=== PATIENT | male | born 1950 | race Caucasian/White ===

== ENCOUNTER 2017-03-26 10:53 | Inpatient (IN) ==
[2017-03-26] MEDS ORDERED: Acetaminophen 325 MG TABLET PO PRN (15:01)
[2017-03-26] MEDS ORDERED: *HR* Morphine 2 MG/ML SYRINGE IVP PRN (15:01)
[2017-03-26] MEDS ORDERED: Naloxone 0.4 MG/ML INJ IVP PRN (15:01)
[2017-03-26] MEDS ORDERED: Ondansetron 4 MG/2 ML VIAL IVP PRN (15:01)
[2017-03-26] MEDS ORDERED: *HR* Dextrose 50 % in Water (Syg) 50 ML SYRINGE IVP PRN (15:04)
[2017-03-26] MEDS ORDERED: D5% in Water 1,000 ML IVC PRN (15:04)
[2017-03-26] MEDS ORDERED: Nitroglycerin 0.4 MG TAB.SUBL SL PRN (15:04)
[2017-03-26] MEDS ORDERED: Dextrose Gel 15 GM PO PRN ×2 (15:04)
[2017-03-26] MEDS ORDERED: *HR* Heparin 5,000 UNIT/ML VIAL SQ SCH (16:00)
[2017-03-26 16:26] LABS: Basophils % 0.4 %; Eosinophils # 0.2 K/mcL (0.0-0.6); Eosinophils % 2.2 %; Hematocrit 39.9 % (37.5-50.1); Hemoglobin 13.2 g/dL (12.9-16.9); Immature Granulocytes % 0.8 % (0-4); Lymphocytes # 2.6 K/mcL (0.6-4.6); Lymphocytes % 28.9 %; Mean Corpuscular HGB Conc 33.1 g/dL (31.6-35.5); Mean Corpuscular Hemoglobin 30.8 pg (28.0-33.3); Mean Corpuscular Volume 93.2 fL (83.0-100.0); Mean Platelet Volume 11.3 fL (9.4-12.4); Monocytes # 0.8 K/mcL (0.0-1.3); Monocytes % 8.6 %; Neutrophils # 5.3 K/mcL (1.6-8.9); Platelet Count 156 K/mcL (140-400); Red Blood Count 4.28 M/mcL (4.19-5.50); Red Cell Distribution Width 13.1 % (11.5-14.5); Segmented Neutrophils % 59.1 %
[2017-03-26 16:31] LABS: Prothrombin Time 11.2 Seconds (9.4-12.1)
[2017-03-26 16:38] LABS: Alanine Aminotransferase 29 Units/L (0-55); Albumin/Globulin Ratio 0.8 (1.1-2.2); Alkaline Phosphatase 58 Units/L (38-126); Aspartate Amino Transferase 31 Units/L (5-34); BUN/Creatinine Ratio 16 (6-26); Bilirubin,Total 0.4 mg/dL (0.2-1.2); Blood Urea Nitrogen 14 mg/dL (8-26); Calcium 8.9 mg/dL (8.6-10.8); Carbon Dioxide 24 mEq/L (19-29); Chloride 103 mEq/L (98-109); Glucose 156 mg/dL (70-99); Magnesium 1.7 mg/dL (1.6-2.6); Osmolality,Calculated 284 (280-300); Sodium 135 mEq/L (136-145); eGFR For African Americans > 60 (> 60); eGFR For Non-African Americans > 60 (> 60)
--- NOTE | 2017-03-26 16:52 | Internal Med History&Physical ---
Date of Encounter: 03/26/17 Time of Encounter: 16:00 Assessment and Plan (1) Chest pain Current visit: No Status: Acute Acute on chronic chest pain - rule out ACS, probable unstable angina Continue aspirin, statin, Lovenox Troponin - 0.00, we will trend EKG - pending Chest x-ray - no acute process Cardiology consultation Labs in a.m. Qualifiers: Chest pain type: unspecified Qualified Code(s): R07.9 - Chest pain, unspecified (2) CAD (coronary artery disease) Current visit: No Status: Chronic Status post CABG and stents Continue aspirin and statin Qualifiers: Coronary Disease-Associated Artery/Lesion type: bypass graft [place] vs. transplanted heart: [place] heart Associated angina: with stable angina Qualified Code(s): I25.709 - Atherosclerosis of coronary artery bypass graft(s) , unspecified, with unspecified angina pectoris (3) HTN (hypertension) Current visit: No Status: Chronic Essential hypertension, controlled, continue home medications, monitor Qualifiers: Hypertension type: essential hypertension Qualified Code(s): I10 - Essential (primary) hypertension (4) HLD (hyperlipidemia) Current visit: No Status: Chronic Continue atorvastatin Qualifiers: Hyperlipidemia type: mixed hyperlipidemia Qualified Code(s): E78.2 - Mixed hyperlipidemia (5) Diabetes Current visit: No Status: Chronic Type 2 diabetes mellitus, insulin-dependent, hyperglycemia Insulin sliding scale, glucose checks, Lantus insulin Qualifiers: Diabetes mellitus type: type 2 Diabetes mellitus complication status: with unspecified complications Diabetes mellitus half-way insulin use: with half-way use Qualified Code(s): E11.8 - Type 2 diabetes mellitus with unspecified complications; Z79.4 - assessment analyst (current) use of insulin (6) COPD (chronic obstructive pulmonary disease) Current visit: No Status: Chronic Not in exacerbation, stable DuoNeb's when necessary Qualifiers: COPD type: emphysema Emphysema type: unspecified Qualified Code(s): J43.9 - Emphysema, unspecified (7) KEVEN (obstructive sleep apnea) Current visit: No Status: Chronic Continue CPAP (8) Morbid obesity with BMI of 40.0-44.9, adult Current visit: No Status: Chronic BMI greater than 40 Encourage weight loss, lifestyle changes (9) DVT prophylaxis Current visit: Yes Status: Acute Continue Lovenox subcutaneous Internal Medicine - H&P: HPI Chief complaint: Chest pain Admitted From: Intrahospital Transfer Plans for Post Hospital Care: Home History of present illness: Mr. Paul is a 66 year old male with past medical history of coronary artery disease, hypertension, hyperlipidemia, diabetes, COPD, obstructive sleep apnea, anxiety and GERD. He presents as a transfer from the [facility]. Patient presented to the ED at the [facility] with complaints of chest pain that started about 24 hours ago. Patient describes the pain as chest tightness and crushing kind of pain mainly on the left side of chest. He states he does have chronic chest pain but this episode was different and more severe. Pain was intermittent and lasting for a few minutes each time. He initially went to the ED at the [facility]. Initial evaluation revealed T inversions and there was concern for ACS. Hospitalist service was contacted about the patient by the physician at the [facility]. He has received aspirin and nitroglycerin and also Lovenox and then transferred. It Director at the [facility] has also evaluated the patient and recommended transfer in view of his extensive coronary artery disease history. The physician also mentioned that patient may require a left heart catheter sooner rather than later. At present patient states his chest pain has improved significantly. Rates it 3 out of 10. Does not radiate. He initially had associated shortness of breath , but this is now resolved. Denies palpitations denies cough denies headache or dizziness or abdominal pain or vomiting or diarrhea. No aggravating or alleviating factors. No other associated symptoms. On examination patient is awake and alert. He is sitting in chair comfortably. Not in any distress. Answers all questions appropriately. No family members at bedside. Patient is being admitted for chest pain to rule out ACS. EKG to be done and troponins will be trended. Cardiology consult pending. He may require a nuclear stress test. Continue all his home medications. Patient has been explained about his condition and plan of care. Understood and agreed. No unanswered questions. CODE STATUS full code. Past Med Surg Social Fam HX - Past Medical History Medical history: COPD, coronary artery disease, diabetes, GERD, hyperlipidemia, hypertension, myocardial infarction, other Psychiatric history: anxiety, depression - Past Surgical History Surgical History: angioplasty/stent, coronary bypass (CABG) - Social History Smoking Status: Former smoker Smokeless Tobacco Status: No Alcohol use: rarely Drug use: none - Family History Father Living Status: Still Living Internal Medicine - H&P: Meds Aspirin Enteric Coated [Aspirin EC] 81 mg PO DAILY 05/08/16 [History] Atorvastatin Calcium [Lipitor] 80 mg PO DAILY 05/08/16 [History] Gabapentin [Neurontin] 900 mg PO QID 05/08/16 [History] Insulin ASPART [Novolog Flexpen] 16 unit SQ TIDWM 05/08/16 [History] Insulin Glargine [Lantus] 50 unit SQ BID 05/08/16 [History] Lisinopril [Zestril] 40 mg PO DAILY 05/08/16 [History] Mineral Oil/Petrolatum,White [Artificial Tears Eye Ointment] 1 appl BOTH EYES HS 05/08/16 [History] Nitroglycerin [Nitrostat] 0.4 mg SL Q5M PRN 05/08/16 [History] [place]-3/Dha/Epa/Fish Oil [Fish Oil 1,000 mg Softgel] 2 each PO BID 05/08/16 [ History] Omeprazole [PriLOSEC] 20 mg PO DAILY 05/08/16 [History] Amlodipine Besylate 2.5 mg PO DAILY 03/26/17 [History] Carboxymethylcellulose Sodium [Refresh Liquigel] 1 drop OP QID 03/26/17 [History ] Chlorhexidine Gluconate [Peridex] 15 ml MM DAILY 03/26/17 [History] DULoxetine [Cymbalta] 30 mg PO DAILY 03/26/17 [History] Enoxaparin [Lovenox] 135 mg SQ Q12H 03/26/17 [History] Insulin ASPART [NovoLOG] 2 - 6 unit SQ PRN PRN 03/26/17 [History] Isosorbide MONOnitrate (24 HR) [Imdur] 90 mg PO DAILY 03/26/17 [History] Metoprolol XL (24 HR) Succ [Toprol XL] 75 mg PO DAILY 03/26/17 [History] Oxybutynin [Ditropan] 5 mg PO DAILY 03/26/17 [History] Allergies No Known Allergies Allergy (Verified 05/08/16 13:53) All Systems PM: A 10-system review of systems was performed and is negative for pertinent findings except as documented above in the HPI. - Constitutional Constitutional: fatigue, weakness, no fever(s) - EENT Eyes: no blurry vision - Cardiovascular Cardiovascular ROS IM: chest pain, dyspnea, orthopnea, no dyspnea on exertion, no syncope - Respiratory Respiratory: dyspnea, no cough, no wheezing, no chest congestion - Gastrointestinal Gastrointestinal: no abdominal pain, no cramping, no diarrhea, no nausea, no vomiting - Genitourinary Genitourinary ROS male: no dysuria - Neurological Neurological ROS: no abnormal gait, no abnormal speech, no dizziness, no numbness, no tingling, no weakness - Constitutional Vitals: Temp Pulse Resp BP Pulse Ox 97.8 F 80 18 122/73 96 03/26/17 15:39 03/26/17 15:39 03/26/17 15:39 03/26/17 15:39 03/26/17 15:39 General appearance: Present: A&O X 3, morbidly obese, pleasant, no acute distress, answers questions appropriately - Head Head exam: Present: atraumatic - ENT ENT exam: Present: mucous membranes moist - Neck Neck exam general surgery: Present: supple - Respiratory Respiratory exam: Present: CTAB. Absent: rales, rhonchi, wheezes, tachypnea - Cardiovascular Cardiovascular exam: Present: RRR, +S1, +S2, systolic murmur - GI/Abdominal GI/Abdominal exam: Present: distended (Obese), soft, no peritoneal signs. Absent: firm, guarding, rigid, tenderness - Extremities Exam Extremities exam: Present: pedal edema (Bilateral leg edema 2+ pitting), radial pulses palpable and symetrical. Absent: cyanotic, tenderness - Neurological Exam Neurological exam: Present: alert, oriented X3, no focal deficits Internal Med - H&P Results - Labs CBC & Chem 7: 03/26/17 15:52 03/26/17 15:52 Labs: Short CBC 03/26/17 Range/Units 15:52 WBC 9.0 (4.3-11.1) K/mcL Hgb 13.2 (12.9-16.9) g/dL Hct 39.9 (37.5-50.1) % Plt Count 156 (140-400) K/mcL Neutrophils # 5.3 (1.6-8.9) K/mcL BMP 03/26/17 15:52 Sodium 135 L Potassium 4.0 Chloride 103 Carbon Dioxide 24 BUN 14 Creatinine 0.85 Glucose 156 H Calcium 8.9 Liver Function 03/26/17 Range/Units 15:52 Total Bilirubin 0.4 (0.2-1.2) mg/dL AST 31 (5-34) Units/L ALT 29 (0-55) Units/L Alkaline Phosphatase 58 (38-126) Units/L Albumin 3.0 L (3.5-5.0) g/dL - Impressions ITS Impressions Chest X-Ray 03/26/17 15:07 IMPRESSION: No active cardiopulmonary disease D/ / Raman Rosas MD / Raman Rosas MD Interpreting Provider: Raman Rosas MD
[2017-03-26] MEDS: Insulin LISPRO 300 UNITS/3 ML VIAL SQ SCH ×2 (17:15→21:03)
[2017-03-26] MEDS: Famotidine 20 MG/2 ML VIAL IVP SCH (17:15)
[2017-03-26] MEDS: Artificial Tears SOLN 15 ML BOTTLE BOTH EYES SCH ×2 (17:16→21:00)
[2017-03-26 17:21] LABS: Hemoglobin A1C 9.2 %
[2017-03-26] MEDS ORDERED: Insulin LISPRO 300 UNITS/3 ML VIAL SQ SCH (18:00)
[2017-03-26] MEDS ORDERED: Insulin DETEMIR 100 UNIT/ML X5UNITS SQ SCH (21:00)
[2017-03-26] MEDS ORDERED: Lacri-Lube 3.5 GM TUBE BOTH EYES SCH (21:00)
[2017-03-26] MEDS ORDERED: NON-FORMULARY MEDICATION 1 EACH EACH (Insulin Glargine [Lantus] 50 UNIT) SQ SCH (21:00)
[2017-03-26] MEDS: *HR* Enoxaparin 150 MG/ML SYRINGE SQ SCH (21:01)
[2017-03-26] MEDS: (Omega-3/Dha/Epa/Fish Oil [Fish Oil 1,000 Mg Softgel) PO SCH (21:03)
[2017-03-27 03:49] LABS: BUN/Creatinine Ratio 20 (6-26); Blood Urea Nitrogen 18 mg/dL (8-26); Calcium 8.8 mg/dL (8.6-10.8); Carbon Dioxide 26 mEq/L (19-29); Chloride 105 mEq/L (98-109); Chol/HDL Ratio 6.5 (0-4.9); Cholesterol 229 mg/dL (< 200); Glucose 111 mg/dL (70-99); HDL Cholesterol 35 mg/dL (40-59); LDL Cholesterol,Calculated 148 mg/dL (0-99); Osmolality,Calculated 287 (280-300); Potassium 4.2 mEq/L (3.5-4.5); Sodium 137 mEq/L (136-145); Triglycerides 231 mg/dL (< 150); eGFR For African Americans > 60 (> 60); eGFR For Non-African Americans > 60 (> 60)
[2017-03-27] MEDS: Famotidine 20 MG/2 ML VIAL IVP SCH (05:29)
[2017-03-27 06:21] VITALS: BP 132/82
[2017-03-27 06:47] LABS: Bilirubin,Urine Negative (Negative); Blood,Urine Negative (Negative); Clarity,Urine Clear (Clear); Color,Urine Yellow (Yellow); Glucose,Urine (UA) Normal (Normal); Ketones,Urine Negative (Negative); Leukocyte Esterase,Urine Negative (Negative); Nitrite,Urine Negative (Negative); Protein,Urine Negative (Neg-Trace); Specific Gravity,Urine 1.024 (1.010-1.025); Urobilinogen,Urine Normal (Normal)
[2017-03-27] MEDS: Insulin LISPRO 300 UNITS/3 ML VIAL SQ SCH (08:14)
--- NOTE | 2017-03-27 08:57 | Cardiology Consult Note ---
<Jenna Mosquera Steven - Last Filed: 03/27/17 09:08> Date of Encounter: 03/27/17 Time of Encounter: 06:45 Assessment and Plan (1) Chest pain Current Visit: Yes Status: Acute Patient presents with typical/atypical chest pain symptoms--pain different from prior ID. Troponin negative at [facility] and also negative x2 here. No ischemic ECG changes, pain free upon exam. He has known severe small vessel not amendable to PCI as demonstrated on [facility] April 2016. EF 40%. Recommend medical management--will increase imdur to 120 mg daily and start Ranexa 500 mg BID. Continue home CV medications including asa, statin, betablocker, CCB, and ACEi. Appears euvolemic upon exam, weights stable. Risk factor modification emphasized including improved glycemic control, daily exercise, and weight loss. Follows with [facility]--recommend follow-up in 1-2 weeks after discharge to assess symptoms after medication adjustments. Anticipate sign-off once seen by Dr. Banuelos. Qualifiers: Chest pain type: chest pain due to myocardial ischemia Ischemic chest pain type: stable angina pectoris Qualified Code(s): I20.8 - Other forms of angina pectoris (2) CAD (coronary artery disease) Current Visit: Yes Status: Chronic Hx of CABG. Plan as above. Asa, statin, betablocker, nitrates, CCB, and ranexa Qualifiers: Coronary Disease-Associated Artery/Lesion type: bypass graft [place] vs. transplanted heart: [place] heart Associated angina: with stable angina Qualified Code(s): I25.709 - Atherosclerosis of coronary artery bypass graft(s) , unspecified, with unspecified angina pectoris Discussion w patient/family: The assessment and plan as outlined above was discussed with the patient and/or family members who expressed understanding and agreement. All questions were answered. Thank you for involving us in the care of your patient. Please call with any questions. The patient will be discussed and reviewed with Dr. Banuelos; changes to be made accordingly. History of Present Illness Consult date: 03/26/17 Requesting physician: Jhonatan Bone Consult reason: Chest pain Chief complaint: Chest pain History of present illness: Mr. Paul is a 66 year old male with PMHx significant for CAD s/p CABG, DMII, HTN, HLD, chronic lung disease, and KEVEN who presented to [facility] from [facility] due to chest pain. Pain is described as left sided pressure/heaviness with radiation to neck. Reports pain initially started 2 weeks ago and describes as intermittent, occurs with rest and exertion. Typically resolves after several minutes without intervention. Pain is different from prior ID. Troponin at the [facility] was negative. No acute ischemic ECG changes noted. Prior CV testing: [facility] 05/11/16: s/p CABG 3 of 4 patent bypass grafts, mild LV dysfunction EF 40% , severe small vessel CAD TTE 05/09/16: very poor echocardiographic windows due to body habitus Past Med Surg Social Fam HX - Past Medical History Attestation: Yes The following information was validated with the patient. Source: patient Medical history: CHF (chronic, systolic), COPD, coronary artery disease, diabetes, GERD, hyperlipidemia, hypertension, myocardial infarction, other (KEVEN) Psychiatric history: anxiety, depression - Past Surgical History Surgical History: angioplasty/stent, coronary bypass (CABG) - Social History Smoking Status: Former smoker Smokeless Tobacco Status: No Alcohol use: rarely Drug use: none - Family History Father Living Status: Still Living Medications and Allergies Aspirin Enteric Coated [Aspirin EC] 81 mg PO DAILY 05/08/16 [History] Atorvastatin Calcium [Lipitor] 80 mg PO DAILY 05/08/16 [History] Gabapentin [Neurontin] 900 mg PO QID 05/08/16 [History] Insulin ASPART [Novolog Flexpen] 16 unit SQ TIDWM 05/08/16 [History] Insulin Glargine [Lantus] 50 unit SQ BID 05/08/16 [History] Lisinopril [Zestril] 40 mg PO DAILY 05/08/16 [History] Mineral Oil/Petrolatum,White [Artificial Tears Eye Ointment] 1 appl BOTH EYES HS 05/08/16 [History] Nitroglycerin [Nitrostat] 0.4 mg SL Q5M PRN 05/08/16 [History] [place]-3/Dha/Epa/Fish Oil [Fish Oil 1,000 mg Softgel] 2 each PO BID 05/08/16 [ History] Omeprazole [PriLOSEC] 20 mg PO DAILY 05/08/16 [History] Amlodipine Besylate 2.5 mg PO DAILY 03/26/17 [History] Carboxymethylcellulose Sodium [Refresh Liquigel] 1 drop OP QID 03/26/17 [History ] Chlorhexidine Gluconate [Peridex] 15 ml MM DAILY 03/26/17 [History] DULoxetine [Cymbalta] 30 mg PO DAILY 03/26/17 [History] Insulin ASPART [NovoLOG] 2 - 6 unit SQ PRN PRN 03/26/17 [History] Isosorbide MONOnitrate (24 HR) [Imdur] 90 mg PO DAILY 03/26/17 [History] Metoprolol XL (24 HR) Succ [Toprol Xl] 75 mg PO DAILY 03/26/17 [History] Oxybutynin [Ditropan] 5 mg PO DAILY 03/26/17 [History] Isosorbide MONOnitrate (24 HR) [Imdur] 120 mg PO DAILY #60 tab.er.24h 03/27/17 [ Rx] Ranolazine [Ranexa] 500 mg PO BID #60 tab.er.12h 03/27/17 [Rx] Allergies No Known Allergies Allergy (Verified 05/08/16 13:53) All Systems Review: A 10-system review of systems was performed and is negative for pertinent findings except as documented above in the HPI. - Cardiovascular Cardiovascular: as per HPI Physical Examination Vital Signs, Last 4 Hours Temp Pulse Resp BP Pulse Ox 03/27/17 06:20 97.5 F L 67 15 132/82 94 General: Conversant, Other (morbidly obese) HEENT: Atraumatic, Normocephaly Cardiac: Reg Rate and Rhythm, Normal S1 and S2 Lungs: Normal Breath Sounds Neuro: Alert and responsive Abdomen: Other (large, obese abdomen) Extremities: Other (large extremities, non-pitting edema) Results 03/26/17 15:52 03/27/17 03:25 Lab Results 03/26/17 03/26/17 03/26/17 15:52 15:52 15:52 WBC 9.0 Hgb 13.2 Hct 39.9 Plt Count 156 INR 1.0 Sodium 135 L Potassium 4.0 Chloride 103 Carbon Dioxide 24 BUN 14 Creatinine 0.85 Glucose 156 H Calcium 8.9 Magnesium 1.7 Total Bilirubin 0.4 AST 31 ALT 29 Alkaline Phosphatase 58 Troponin I B-Natriuretic Peptide 03/26/17 03/26/17 03/26/17 15:52 15:52 21:36 WBC Hgb Hct Plt Count INR Sodium Potassium Chloride Carbon Dioxide BUN Creatinine Glucose Calcium Magnesium Total Bilirubin AST ALT Alkaline Phosphatase Troponin I 0.00 0.00 B-Natriuretic Peptide 11 03/27/17 03/27/17 03:25 03:25 WBC Hgb Hct Plt Count INR Sodium 137 Potassium 4.2 Chloride 105 Carbon Dioxide 26 BUN 18 Creatinine 0.90 Glucose 111 H Calcium 8.8 Magnesium Total Bilirubin AST ALT Alkaline Phosphatase Troponin I 0.01 B-Natriuretic Peptide Active Medications Acetaminophen (Tylenol) 650 mg PO Q6HR PRN PRN Reason: Mild Pain (1-3) Stop: 09/25/17 15:02 Amlodipine Besylate (Norvasc) 5 mg PO DAILY SHARDA PRN Reason: Protocol Stop: 09/26/17 09:01 Last Admin: 03/27/17 09:01 Dose: 5 mg Artificial Tears (Lacri-Lube) 1 appl BOTH EYES HS SHARDA PRN Reason: Protocol Stop: 09/25/17 21:01 Last Admin: 03/26/17 21:01 Dose: 1 appl Artificial Tears ([place] Tears) 1 drop BOTH EYES QID [facility] Stop: 09/25/17 17:01 Last Admin: 03/27/17 09:02 Dose: 1 drop Aspirin (Aspirin Ec) 81 mg PO DAILY [facility] Stop: 09/26/17 09:01 Last Admin: 03/27/17 09:01 Dose: 81 mg Atorvastatin Calcium (Lipitor) 80 mg PO DAILY [facility] Stop: 09/25/17 15:16 Last Admin: 03/27/17 09:01 Dose: 80 mg Calcium Carbonate (Tums) 500 mg PO BID [facility] Stop: 09/25/17 21:01 Last Admin: 03/27/17 09:01 Dose: 500 mg Carvedilol (Coreg) 25 mg PO BID [facility] PRN Reason: Protocol Stop: 09/25/17 21:01 Last Admin: 03/27/17 09:02 Dose: 25 mg Dextrose/Water (Dextrose 50% (Syg)) 25 ml IVP AD PRN PRN Reason: Hypoglycemia Stop: 09/25/17 15:05 Enoxaparin Sodium (Lovenox) 140 mg SQ Q12H [facility] Stop: 09/25/17 21:01 Last Admin: 03/27/17 09:02 Dose: 140 mg Famotidine (Pepcid) 20 mg IVP Q12HR [facility] Stop: 09/25/17 18:01 Last Admin: 03/27/17 05:29 Dose: 20 mg Fenofibrate (Tricor) 162 mg PO DAILY SHARDA PRN Reason: Protocol Stop: 09/26/17 09:01 Last Admin: 03/27/17 09:01 Dose: 162 mg Furosemide (Lasix) 20 mg PO DAILY [facility] Stop: 09/26/17 09:01 Last Admin: 03/27/17 09:01 Dose: 20 mg Insulin Detemir (Levemir) 50 unit SQ BID [facility] Stop: 09/25/17 21:01 Last Admin: 03/26/17 21:00 Dose: 50 unit Insulin Human Lispro (Humalog) 0 units SQ ACHS SHARDA PRN Reason: Protocol Stop: 09/25/17 17:01 Last Admin: 03/27/17 08:14 Dose: Not Given Isosorbide Mononitrate (Imdur) 120 mg PO DAILY [facility] Stop: 09/26/17 09:01 Last Admin: 03/27/17 09:01 Dose: 120 mg Lisinopril (Zestril) 40 mg PO DAILY [facility] Stop: 09/26/17 09:01 Last Admin: 03/27/17 09:02 Dose: 40 mg Morphine Sulfate (Morphine Sulfate) 2 mg IVP Q4HR PRN PRN Reason: Severe Pain (7-10) Stop: 09/25/17 15:02 Naloxone HCl (Narcan) 0.4 mg IVP Q2MIN PRN PRN Reason: Opioid Reversal Stop: 09/25/17 15:02 Nitroglycerin (Nitroglycerin) 0.4 mg SL AD PRN PRN Reason: Chest Pain Stop: 09/25/17 15:05 Ondansetron HCl (Zofran) 4 mg IVP Q8HR PRN PRN Reason: Nausea And Vomiting Stop: 09/25/17 15:02 Pharmacy Profile Note (Patient Taking Own Medication) 0 each PO BID [facility] Stop: 09/25/17 21:01 Last Admin: 03/27/17 09:02 Dose: Not Given Ranolazine (Ranexa) 500 mg PO BID [facility] Stop: 09/26/17 09:01 Last Admin: 03/27/17 09:02 Dose: 500 mg Vitamin D (Vitamin D) 1,000 unit PO QD [facility] Stop: 09/26/17 09:01 Last Admin: 03/27/17 09:01 Dose: 1,000 unit - Imaging and Cardiology Stress Test: report reviewed Echo: report reviewed Cardiac cath: report reviewed Other Results: 12 hour tele: avg HR=68 SR. No significant pause or event noted. - EKG Interpretation EKG results cardiology: personally reviewed Consult Discharge Plan - Plan Instructions: Isosorbide Mononitrate (By mouth), Ranolazine (By mouth), Chest Pain (DC), Diabetes Mellitus Type 2 in Adults (DC), Chronic Obstructive Pulmonary Disease (DC), Chronic Hypertension (DC) Additional Instructions: Follow up with Cardiology at [facility] in 1-2 weeks [facility] [Primary Care Provider[facility] - (in 1-2 weeks) Prescriptions: Isosorbide MONOnitrate (24 HR) [Imdur] 120 mg PO DAILY #60 tab.er.24h Ranolazine [Ranexa] 500 mg PO BID #60 tab.er.12h <Whitney Banuelos - Last Filed: 03/27/17 11:27> Date of Encounter: 03/27/17 Assessment and Plan Discussion w patient/family: The assessment and plan as outlined above was discussed with the patient and/or family members who expressed understanding and agreement. All questions were answered. Thank you for involving us in the care of your patient. Please call with any questions. History of Present Illness History of present illness: Mr. Paul is a 66 year old male All Systems Review: A 10-system review of systems was performed and is negative for pertinent findings except as documented above in the HPI. Results 03/26/17 15:52 03/27/17 03:25 Lab Results 03/26/17 03/26/17 03/26/17 15:52 15:52 15:52 WBC 9.0 Hgb 13.2 Hct 39.9 Plt Count 156 INR 1.0 Sodium 135 L Potassium 4.0 Chloride 103 Carbon Dioxide 24 BUN 14 Creatinine 0.85 Glucose 156 H Calcium 8.9 Magnesium 1.7 Total Bilirubin 0.4 AST 31 ALT 29 Alkaline Phosphatase 58 Troponin I B-Natriuretic Peptide 03/26/17 03/26/17 03/26/17 15:52 15:52 21:36 WBC Hgb Hct Plt Count INR Sodium Potassium Chloride Carbon Dioxide BUN Creatinine Glucose Calcium Magnesium Total Bilirubin AST ALT Alkaline Phosphatase Troponin I 0.00 0.00 B-Natriuretic Peptide 11 03/27/17 03/27/17 03:25 03:25 WBC Hgb Hct Plt Count INR Sodium 137 Potassium 4.2 Chloride 105 Carbon Dioxide 26 BUN 18 Creatinine 0.90 Glucose 111 H Calcium 8.8 Magnesium Total Bilirubin AST ALT Alkaline Phosphatase Troponin I 0.01 B-Natriuretic Peptide - Attending Attestation I examined this patient and my medical decision-making was reviewed with the DINKEY ENGINE OPERATOR/PA/Advanced Practice Nurse/Resident Physician. I agree with the documented findings, disposition and treatment plan. Mr. Paul presents with atypical chest pain with known CAD and ischemic cardiomyopathy EF 40%. He last underwent cath April 2016 demonstrating small vessel disease not amenable to PCI. We recommend medical management. Troponins negative. No concering ECG findings. Now chest pain free. Will add ranexa and increase imdur. Continue asa, statin, BB, ACEI. He is euvolemic on exam. Lungs clear on CXR. BNP normal. We will sign off. Recommend outpatient cardiology follow up. Please call with questions.
[2017-03-27] MEDS ORDERED: amLODIPine 5 MG TABLET PO SCH (09:00)
[2017-03-27] MEDS ORDERED: Cholecalciferol (D-3) 1,000 UNIT TABLET PO SCH (09:00)
[2017-03-27] MEDS ORDERED: Lisinopril 20 MG TABLET PO SCH (09:00)
[2017-03-27] MEDS ORDERED: Fenofibrate 54 MG TABLET PO SCH (09:00)
[2017-03-27] MEDS ORDERED: Ranolazine 500 MG TAB.ER.12H PO SCH (09:00)
[2017-03-27] MEDS ORDERED: Furosemide 20 MG TABLET PO SCH (09:00)
[2017-03-27] MEDS ORDERED: Isosorbide MONOnitrate (24 HR) 60 MG TAB.ER.24H PO SCH (09:00)
[2017-03-27] MEDS ORDERED: Isosorbide MONOnitrate (24 HR) 30 MG TAB.ER.24H PO SCH (09:00)
[2017-03-27] MEDS ORDERED: Aspirin Enteric Coated 81 MG Tablet PO SCH (09:00)
[2017-03-27] MEDS: Artificial Tears SOLN 15 ML BOTTLE BOTH EYES SCH (09:02)
[2017-03-27] MEDS: *HR* Enoxaparin 150 MG/ML SYRINGE SQ SCH (09:02)
[2017-03-27] MEDS: (Omega-3/Dha/Epa/Fish Oil [Fish Oil 1,000 Mg Softgel) PO SCH (09:02)
--- NOTE | 2017-03-27 09:50 | Discharge Summary ---
Date of Encounter: 03/27/17 Time of Encounter: 09:15 - Discharge Diagnosis (1) Chest pain Priority: Primary Status: Acute Qualifiers: Chest pain type: chest pain due to myocardial ischemia Ischemic chest pain type: stable angina pectoris Qualified Code(s): I20.8 - Other forms of angina pectoris (2) CAD (coronary artery disease) Priority: Secondary Status: Chronic Qualifiers: Coronary Disease-Associated Artery/Lesion type: bypass graft [place] vs. 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 Qualified Code(s): E11.8 - Type 2 diabetes mellitus with unspecified complications; Z79.4 - regional intermodal truck driver (current) use of insulin (5) HLD (hyperlipidemia) Priority: Secondary Status: Chronic Qualifiers: Hyperlipidemia type: mixed hyperlipidemia Qualified Code(s): E78.2 - Mixed hyperlipidemia (6) HTN (hypertension) Priority: Secondary Status: Chronic Qualifiers: Hypertension type: essential hypertension Qualified Code(s): I10 - Essential (primary) hypertension (7) Morbid obesity with BMI of 40.0-44.9, adult Priority: Secondary Status: Chronic (8) KEVEN (obstructive sleep apnea) Priority: Secondary Status: Chronic - Discharge Medications Prescriptions: Isosorbide MONOnitrate (24 HR) [Imdur] 120 mg PO DAILY #60 tab.er.24h Ranolazine [Ranexa] 500 mg PO BID #60 tab.er.12h Home Medications: Aspirin Enteric Coated [Aspirin EC] 81 mg PO DAILY 05/08/16 [History] Atorvastatin Calcium [Lipitor] 80 mg PO DAILY 05/08/16 [History] Gabapentin [Neurontin] 900 mg PO QID 05/08/16 [History] Insulin ASPART [Novolog Flexpen] 16 unit SQ TIDWM 05/08/16 [History] Insulin Glargine [Lantus] 50 unit SQ BID 05/08/16 [History] Lisinopril [Zestril] 40 mg PO DAILY 05/08/16 [History] Mineral Oil/Petrolatum,White [Artificial Tears Eye Ointment] 1 appl BOTH EYES HS 05/08/16 [History] Nitroglycerin [Nitrostat] 0.4 mg SL Q5M PRN 05/08/16 [History] [place]-3/Dha/Epa/Fish Oil [Fish Oil 1,000 mg Softgel] 2 each PO BID 05/08/16 [ History] Omeprazole [PriLOSEC] 20 mg PO DAILY 05/08/16 [History] Amlodipine Besylate 2.5 mg PO DAILY 03/26/17 [History] Carboxymethylcellulose Sodium [Refresh Liquigel] 1 drop OP QID 03/26/17 [History ] Chlorhexidine Gluconate [Peridex] 15 ml MM DAILY 03/26/17 [History] DULoxetine [Cymbalta] 30 mg PO DAILY 03/26/17 [History] Insulin ASPART [NovoLOG] 2 - 6 unit SQ PRN PRN 03/26/17 [History] Isosorbide MONOnitrate (24 HR) [Imdur] 90 mg PO DAILY 03/26/17 [History] Metoprolol XL (24 HR) Succ [Toprol Xl] 75 mg PO DAILY 03/26/17 [History] Oxybutynin [Ditropan] 5 mg PO DAILY 03/26/17 [History] Isosorbide MONOnitrate (24 HR) [Imdur] 120 mg PO DAILY #60 tab.er.24h 03/27/17 [ Rx] Ranolazine [Ranexa] 500 mg PO BID #60 tab.er.12h 03/27/17 [Rx] Allergies/Adverse Reactions: Allergies No Known Allergies Allergy (Verified 05/08/16 13:53) Procedures/tests Complete & Pending: Procedures Performed prior 72 hours Category Date Time Status ECG 12 lead ECG [ECG] Stat Y 03/26/17 15:01 Ordered EKG [ECG 12 lead ECG] [ECG] AM 0600 Y 03/27/17 06:00 Ordered Date of admission: 03/26/17 15:50 [facility] care physician: [facility] Consults: 03/26/17 15:06 Consult to Cardiology [CONS] Routine Comment: Consulting Provider: Sravani Du Reason for Consult: Unstable angina, coronary artery disease Call Completed: No Discharging clinician: Anabel Epperson Anticipated date of discharge: 03/27/17 - Patient Status Disposition: Home, Self-Care Condition: Good Functional capacity at discharge: independent ambulation Overall status at discharge: patient is progressing back to baseline - Discharge Instructions Instructions: Isosorbide Mononitrate (By mouth), Ranolazine (By mouth), Chest Pain (DC), Diabetes Mellitus Type 2 in Adults (DC), Chronic Obstructive Pulmonary Disease (DC), Chronic Hypertension (DC) Follow Up With: [facility] [Primary Care Provider] - (in 1-2 weeks) Additional Instructions: Follow up with Cardiology at [facility] in 1-2 weeks - Diet and Activity Activity: increase activity as tolerated Diet: diabetic diet, low fat, low cholesterol, low salt diet Hospital course: Mr. Paul is a 66 year old male patient with a history of coronary artery disease status post coronary artery bypass grafting with severe small vessel coronary artery disease not amenable to PCI presented to the ER with complaints of chest pain. He had left-sided chest pain with heaviness and radiation to the neck. He apparently had run out of nitroglycerin at home and his pain improved after he was given nitroglycerin in the ER. He denies any shortness of breath or palpitations. His troponins were trended and they were negative so far. Cardiology was consulted. Given that patient appears to be having chronic stable angina, they recommend increasing the patient's Imdur and standing and accepted to the patient's treatment regimen in addition to his aspirin, statin and beta nancy. Recommend outpatient follow-up with cardiology for further management of his chronic chest pain. - Time Spent with Patient Total time spent providing and/or coordinating discharge services: Less than 30 minutes (25 min) - Constitutional Vitals: Temp Pulse Resp BP Pulse Ox 97.5 F L 67 15 132/82 94 03/27/17 06:20 03/27/17 06:20 03/27/17 06:20 03/27/17 06:20 03/27/17 06:20 General appearance: Present: A&O X 3, morbidly obese, pleasant, no acute distress, answers questions appropriately - Neck Neck exam general surgery: Present: supple, trachea midline. Absent: lymphadenopathy - Respiratory Respiratory exam: Present: CTAB. Absent: accessory muscle use, rales, rhonchi, wheezes - Cardiovascular Cardiovascular exam: Present: RRR, +S1, +S2. Absent: diastolic murmur, gallop, rubs, systolic murmur - GI/Abdominal GI/Abdominal exam: Present: normal bowel sounds, soft, no peritoneal signs. Absent: distended, tenderness
== END 2017-03-27 12:51 | disposition home or self-care (01) | DRG 303 ==
LOC: 2NENU → SUATTDRO 15:50
PROVIDERS: ADMIT Family Medicine; ATTEND Internal Medicine

== ENCOUNTER 2020-09-24 13:41 | Inpatient (IN) ==
[2020-09-24] MEDS ORDERED: *HR* Heparin 5,000 UNIT/ML VIAL IVP PRN (13:56)
[2020-09-24] MEDS ORDERED: *HR* Heparin 5,000 UNIT/ML VIAL IVP ONE (13:56)
[2020-09-24] MEDS ORDERED: Aspirin 325 MG TABLET PO ONE (13:59)
[2020-09-24] MEDS ORDERED: Furosemide 40 MG/4 ML VIAL IVP ONE (14:07)
[2020-09-24 14:39] LABS: INR 1.2; Prothrombin Time 13.8 Seconds (9.4-12.1)
[2020-09-24] MEDS ORDERED: Naloxone 0.4 MG/ML INJ IVP PRN (14:50)
[2020-09-24] MEDS ORDERED: Acetaminophen 325 MG TABLET PO PRN (14:50)
[2020-09-24] MEDS ORDERED: Ondansetron 4 MG/2 ML VIAL IVP PRN (14:50)
[2020-09-24] MEDS ORDERED: Perflutren Lipid Microsphere 1.3 ML in 0.9 % Sodium Chloride 8.7 ML IVP PRN (14:54)
[2020-09-24 14:58] LABS: Heparin anti-factor XA UFH < 0.04 IU/mL (0.30-0.70)
[2020-09-24 15:14] LABS: Basophils # 0.1 K/mcL (0.0-0.2); Basophils % 0.6 %; Eosinophils # 0.3 K/mcL (0.0-0.6); Eosinophils % 3.7 %; Hematocrit 42.4 % (37.5-50.1); Hemoglobin 13.5 g/dL (12.9-16.9); Immature Granulocytes % 0.3 % (0-4); Lymphocytes # 2.2 K/mcL (0.6-4.6); Lymphocytes % 25.2 %; Mean Corpuscular HGB Conc 31.8 g/dL (31.6-35.5); Mean Corpuscular Hemoglobin 32.1 pg (28.0-33.3); Mean Platelet Volume 11.2 fL (9.4-12.4); Monocytes # 0.9 K/mcL (0.0-1.3); Monocytes % 10.2 %; Neutrophils # 5.3 K/mcL (1.6-8.9); Platelet Count 172 K/mcL (140-400); White Blood Count 8.8 K/mcL (4.3-11.1)
[2020-09-24 15:17] LABS: BUN/Creatinine Ratio 23 (6-26); Blood Urea Nitrogen 22 mg/dL (8-23); Calcium 8.9 mg/dL (8.6-10.3); Carbon Dioxide 26 mEq/L (23-29); Chloride 100 mEq/L (98-107); Glucose 256 mg/dL (70-105); Magnesium 1.7 mg/dL (1.6-2.6); Osmolality,Calculated 294 (280-300); Potassium 4.5 mEq/L (3.5-5.1); Sodium 136 mEq/L (136-145); eGFR For African Americans > 60 (> 60); eGFR For Non-African Americans > 60 (> 60)
[2020-09-24] MEDS: Heparin 25,000UNIT/250ML 1/2NS 25,000 UNIT/250 ML IV.SOLN IVC SCH (15:33)
[2020-09-24 17:32] LABS: Adenovirus Not Detected (Not Detect); Bordetella Pertussis Not Detected (Not Detect); Chlamydophila pneumoniae Not Detected (Not Detect); Coronavirus 229E Not Detected (Not Detect); Coronavirus HKU1 Not Detected (Not Detect); Coronavirus NL63 Not Detected (Not Detect); Coronavirus OC43 Not Detected (Not Detect); Human Metapneumovirus Not Detected (Not Detect); Human Rhinovirus/Enterovirus Not Detected (Not Detect); Influenza A Subtype 2009 H1 Not Detected (Not Detect); Influenza B Not Detected (Not Detect); Mycoplasma pneumoniae Not Detected (Not Detect); Parainfluenza Virus 1 Not Detected (Not Detect); Parainfluenza Virus 2 Not Detected (Not Detect); Parainfluenza Virus 3 Not Detected (Not Detect); Parainfluenza Virus 4 Not Detected (Not Detect); Respiratory Syncytial Virus Not Detected (Not Detect); SARS-CoV-2 Not Detected (Not Detect)
[2020-09-24] MEDS ORDERED: Ipratropium/Albuterol Neb 3 ML IH PRN (18:48)
[2020-09-24] MEDS ORDERED: D5% in Water 1,000 ML IVC PRN (18:48)
[2020-09-24] MEDS ORDERED: Dextrose Gel 15 GM/37.5 ML TUBE PO PRN ×2 (18:48)
[2020-09-24] MEDS ORDERED: *HR* Dextrose 50 % in Water (Vial) 50 ML VIAL IVP PRN (18:48)
[2020-09-24] MEDS: amLODIPine 5 MG TABLET PO SCH (20:37)
[2020-09-24] MEDS: Ranolazine 500 MG TAB.ER.12H PO SCH (20:37)
[2020-09-24] MEDS: Metoprolol XL (24 HR) Succ 50 MG TAB.ER.24H PO SCH (20:37)
[2020-09-24] MEDS: Insulin LISPRO 300 UNITS/3 ML VIAL SUBQ SCH ×2 (20:41→23:48)
[2020-09-24] MEDS: *HR* Heparin 5,000 UNIT/ML VIAL IVP PRN (21:56)
[2020-09-25] MEDS: traZODone 50 MG TABLET PO PRN ×2 (02:06→23:33)
[2020-09-25 05:31] LABS: Basophils # 0.1 K/mcL (0.0-0.2); Basophils % 0.6 %; Eosinophils # 0.4 K/mcL (0.0-0.6); Eosinophils % 3.8 %; Hematocrit 40.9 % (37.5-50.1); Hemoglobin 12.6 g/dL (12.9-16.9); Immature Granulocytes % 0.4 % (0-4); Lymphocytes # 2.1 K/mcL (0.6-4.6); Lymphocytes % 21.2 %; Mean Corpuscular HGB Conc 30.8 g/dL (31.6-35.5); Mean Corpuscular Hemoglobin 31.3 pg (28.0-33.3); Mean Corpuscular Volume 101.5 fL (83.0-100.0); Monocytes # 0.9 K/mcL (0.0-1.3); Monocytes % 9.2 %; Neutrophils # 6.5 K/mcL (1.6-8.9); Platelet Count 189 K/mcL (140-400); Red Blood Count 4.03 M/mcL (4.19-5.50); Red Cell Distribution Width 13.8 % (11.5-14.5); Segmented Neutrophils % 64.8 %
[2020-09-25 05:50] LABS: BUN/Creatinine Ratio 25 (6-26); Blood Urea Nitrogen 26 mg/dL (8-23); Calcium 8.9 mg/dL (8.6-10.3); Carbon Dioxide 27 mEq/L (23-29); Chloride 101 mEq/L (98-107); Glucose 250 mg/dL (70-105); Magnesium 1.8 mg/dL (1.6-2.6); Osmolality,Calculated 295 (280-300); Potassium 4.4 mEq/L (3.5-5.1); Sodium 136 mEq/L (136-145); eGFR For African Americans > 60 (> 60); eGFR For Non-African Americans > 60 (> 60)
[2020-09-25] MEDS: Insulin LISPRO 300 UNITS/3 ML VIAL SUBQ SCH ×6 (05:57→19:39)
[2020-09-25] MEDS: *HR* Heparin 5,000 UNIT/ML VIAL IVP PRN (06:13)
[2020-09-25] MEDS: Ranolazine 500 MG TAB.ER.12H PO SCH ×2 (08:21→19:43)
[2020-09-25] MEDS: Finasteride 5 MG TABLET PO SCH (08:21)
[2020-09-25] MEDS: Aspirin Enteric Coated 81 MG Tablet PO SCH (08:21)
[2020-09-25] MEDS: Isosorbide MONOnitrate (24 HR) 60 MG TAB.ER.24H PO SCH (08:29)
[2020-09-25] MEDS ORDERED: Spironolactone 25 MG TABLET PO SCH (09:00)
[2020-09-25 09:29] LABS: Estimated Average Glucose 203 mg/dl; Hemoglobin A1C 8.7 %
[2020-09-25] MEDS: Metoprolol XL (24 HR) Succ 50 MG TAB.ER.24H PO SCH (11:15)
[2020-09-25] MEDS: amLODIPine 5 MG TABLET PO SCH (11:15)
[2020-09-25] MEDS ORDERED: 0.9 % Sodium Chloride 250 ML IVC ONE (15:40)
[2020-09-25] MEDS ORDERED: 0.9 % Sodium Chloride 250 ML ONE (15:41)
[2020-09-25 16:16] LABS: White Blood Count 8.6 K/mcL (4.3-11.1)
[2020-09-25 16:17] LABS: Basophils % 0.5 %; Eosinophils # 0.2 K/mcL (0.0-0.6); Eosinophils % 2.8 %; Hematocrit 31.8 % (37.5-50.1); Hemoglobin 9.8 g/dL (12.9-16.9); Immature Granulocytes % 0.3 % (0-4); Mean Corpuscular HGB Conc 30.8 g/dL (31.6-35.5); Mean Corpuscular Hemoglobin 32.1 pg (28.0-33.3); Mean Corpuscular Volume 104.3 fL (83.0-100.0); Mean Platelet Volume 11.6 fL (9.4-12.4); Monocytes # 0.8 K/mcL (0.0-1.3); Monocytes % 9.7 %; Neutrophils # 5.5 K/mcL (1.6-8.9); Nucleated Red Blood Cells 0.5 /100 WBC (0); Platelet Count 154 K/mcL (140-400); Red Blood Count 3.05 M/mcL (4.19-5.50); Segmented Neutrophils % 63.7 %
[2020-09-25] MEDS: Heparin 25,000UNIT/250ML 1/2NS 25,000 UNIT/250 ML IV.SOLN IVC SCH (16:26)
[2020-09-25] MEDS ORDERED: Isovue-370 500 ML BOTTLE IVP ONE (16:26)
[2020-09-25] MEDS: Furosemide 40 MG/4 ML VIAL IVP SCH ×2 (16:32→17:21)
[2020-09-25] MEDS ORDERED: Insulin DETEMIR 100 UNIT/ML X5UNITS SUBQ SCH (21:00)
[2020-09-25 22:56] LABS: Hematocrit 40.9 % (37.5-50.1)
[2020-09-25 22:58] LABS: Hemoglobin 12.5 g/dL (12.9-16.9)
[2020-09-26] MEDS: *HR* Heparin 5,000 UNIT/ML VIAL IVP PRN (00:07)
[2020-09-26 03:07] LABS: Basophils # 0.1 K/mcL (0.0-0.2); Basophils % 0.5 %; Eosinophils # 0.3 K/mcL (0.0-0.6); Eosinophils % 3.3 %; Hematocrit 38.5 % (37.5-50.1); Hemoglobin 12.1 g/dL (12.9-16.9); Immature Granulocytes % 0.5 % (0-4); Lymphocytes # 2.5 K/mcL (0.6-4.6); Lymphocytes % 24.4 %; Mean Corpuscular HGB Conc 31.4 g/dL (31.6-35.5); Mean Corpuscular Hemoglobin 31.9 pg (28.0-33.3); Mean Corpuscular Volume 101.6 fL (83.0-100.0); Mean Platelet Volume 11.3 fL (9.4-12.4); Monocytes % 9.8 %; Neutrophils # 6.2 K/mcL (1.6-8.9); Platelet Count 168 K/mcL (140-400); Red Blood Count 3.79 M/mcL (4.19-5.50); Red Cell Distribution Width 13.9 % (11.5-14.5); Segmented Neutrophils % 61.5 %; White Blood Count 10.1 K/mcL (4.3-11.1)
[2020-09-26 03:24] LABS: Calcium 8.4 mg/dL (8.6-10.3); Magnesium 1.7 mg/dL (1.6-2.6)
[2020-09-26 03:36] LABS: Troponin I 0.98 ng/mL (< 0.04)
[2020-09-26] MEDS: Insulin LISPRO 300 UNITS/3 ML VIAL SUBQ SCH ×2 (08:15→12:11)
[2020-09-26] MEDS ORDERED: Metoprolol XL (24 HR) Succ 25 MG TAB.ER.24H PO SCH (09:00)
[2020-09-26] MEDS: Ranolazine 500 MG TAB.ER.12H PO SCH (09:57)
[2020-09-26] MEDS: Finasteride 5 MG TABLET PO SCH (09:57)
[2020-09-26] MEDS: Isosorbide MONOnitrate (24 HR) 60 MG TAB.ER.24H PO SCH (09:57)
[2020-09-26] MEDS: Aspirin Enteric Coated 81 MG Tablet PO SCH (09:57)
[2020-09-26] MEDS: Heparin 25,000UNIT/250ML 1/2NS 25,000 UNIT/250 ML IV.SOLN IVC SCH (12:35)
[2020-09-26] MEDS ORDERED: Insulin LISPRO 300 UNITS/3 ML VIAL SUBQ SCH ×2 (14:53)
[2020-09-26] MEDS: Albumin 25% 25gram/100mL 25 GM/100 ML IV.SOLN IVC SCH ×2 (15:04→18:44)
[2020-09-26 15:24] LABS: Albumin 3.4 g/dL (3.5-5.7); Bilirubin,Direct 0.2 mg/dL (0.0-0.2); Bilirubin,Indirect 0.4 mg/dL (0.0-1.0); Bilirubin,Total 0.6 mg/dL (0.3-1.0); Globulin 3.5 g/dL (2.4-3.5); Total Protein 6.9 g/dL (6.4-8.9)
[2020-09-26 15:30] VITALS: BP 99/64
[2020-09-26] MEDS ORDERED: *HR* Magnesium Sulfate 2 GM/50 ML PIGGYBACK IVPB ONE (19:31)
[2020-09-26] MEDS ORDERED: *HR* Atropine Sulfate 1 MG/10 ML SYRINGE IV ONE (19:31)
[2020-09-26] MEDS ORDERED: *HR* EPINEPHrine 1 MG/10 ML SYRINGE IVP ONE (19:31)
[2020-09-26] MEDS ORDERED: Furosemide 20 MG/2 ML VIAL IVP SCH (21:00)
== END 2020-09-26 19:32 | disposition expired ==
LOC: 2ANU 13:41 → EMEROOARM 13:41 → SUATTDRO 15:10 → 2ANU 17:41
PROVIDERS: ADMIT Pharmacist; ATTEND Internal Medicine